=== PATIENT | male | born 1985 | race Caucasian/White ===

== ENCOUNTER → 2025-03-16 | Outpatient (CLI) | payer OTHER | LOC: LAB 19:43 → LAB SHORT 19:43 | DX: N39.0 Urinary tract infection, site not specified (principal) | CPT/HCPCS: 87077; 87086; 87186 ==

== ENCOUNTER → 2025-08-19 | Outpatient (CLI) | payer OTHER | LOC: LAB 12:24 → LAB SHORT 12:24 | DX: D22.61 Melanocytic nevi of right upper limb, including shoulder (principal) | CPT/HCPCS: 88305 ==